=== PATIENT | male | born 1975 | race Caucasian/White ===

== ENCOUNTER → 2023-10-19 15:18 | Outpatient (REF) | payer BC, SELFPAY | LOC: RAD 15:18 | PROVIDERS: ATTENDING PHYSICIAN Physician Assistant Medical | DX: M25.511 Pain in right shoulder (principal) | CPT/HCPCS: 73030 ==

== ENCOUNTER → 2023-11-30 20:58 | Outpatient (REF) | payer BC, SELFPAY | LOC: MRI 20:58 | PROVIDERS: ATTENDING PHYSICIAN Physician Assistant Medical | DX: M25.511 Pain in right shoulder (principal) | CPT/HCPCS: 73221 ==